=== PATIENT | male | born 1955 | race Caucasian/White ===

== ENCOUNTER 2021-12-10 12:51 | Outpatient (REF) | payer MEDICARE, OTHER, SELFPAY ==
--- NOTE | ~2021-12-10 | XR_ITS ---
EXAMINATION: XR HIP, RIGHT XR HIP, LEFT CLINICAL INFORMATION: Bilateral hip pain COMPARISON: None TECHNIQUE: Each hip is imaged in AP and frog-lateral projections. There are total of 4 views. FINDINGS: There is no fracture or dislocation. Bony mineralization appears normal. Neither hip shows focal joint narrowing or erosive change or visible chondrocalcinosis. There is some fine short linear mineralization adjacent to mid aspect of each greater trochanter which may related to tendon insertion. Soft tissue planes appear symmetric. The visualized SI joints and pubis are unremarkable. XR/XR hip LT w PEL1V IMPRESSION: 1. No focal joint narrowing or erosive change. 2. Fine short mineralization adjacent to mid greater trochanters which may be related to tendon insertion.
--- NOTE | ~2021-12-10 | XR_ITS ---
EXAMINATION: XR HIP, RIGHT XR HIP, LEFT CLINICAL INFORMATION: Bilateral hip pain COMPARISON: None TECHNIQUE: Each hip is imaged in AP and frog-lateral projections. There are total of 4 views. FINDINGS: There is no fracture or dislocation. Bony mineralization appears normal. Neither hip shows focal joint narrowing or erosive change or visible chondrocalcinosis. There is some fine short linear mineralization adjacent to mid aspect of each greater trochanter which may related to tendon insertion. Soft tissue planes appear symmetric. The visualized SI joints and pubis are unremarkable. XR/XR hip RT min 2V IMPRESSION: 1. No focal joint narrowing or erosive change. 2. Fine short mineralization adjacent to mid greater trochanters which may be related to tendon insertion.
== END 2021-12-10 12:52 | disposition home or self-care (01) ==
LOC: HO.HOSX 12:51
PROVIDERS: PCP Internal Medicine; Visit Provider Physician Assistant
DX: M16.0 Bilateral primary osteoarthritis of hip (principal); M54.16 Radiculopathy, lumbar region
CPT/HCPCS: 73502; 99202

== ENCOUNTER 2021-12-23 12:46 | Outpatient (REF) | payer MEDICARE, OTHER, SELFPAY ==
--- NOTE | ~2021-12-23 | FL_ITS ---
EXAMINATION: BILATERAL HIP STEROID INJECTION UNDER FLUOROSCOPY CLINICAL INFORMATION: Bilateral hip pain. Primary osteoarthritis. COMPARISON: None TECHNIQUE: 3 images. DLP: 41.604 PROCEDURE: Following explaining bilateral hip steroid injection under fluoroscopy the procedure, benefits and risks, a written consent was obtained. Skin overlying the left hip was cleaned and draped in usual sterile manner. 1% lidocaine was injected puncture site. A 22-gauge spinal needle was inserted from a left-sided approach to the left femoral neck lateral cortex and 2 mL of nonionic contrast was injected. After confirming contrast in the joint space 4 mL 1% lidocaine, 4 mL 0.25% Marcaine and 1 mL steroid was injected and needle withdrawn. Complete hemostasis was achieved at the puncture site and sterile Band-Aid applied postprocedure. Subsequently, the skin overlying the right hip was cleaned and draped in usual sterile manner. 1% lidocaine was injected puncture site. A 20-gauge spinal needle was then injected from the skin into the lateral cortex of the right femoral neck and 2 mL of nonionic contrast was injected. A single image was obtained for documentation. Subsequently, 4 mL of 1% lidocaine, 4 mL of 0.25% Sensorcaine and 1 mL of steroid was injected and needle withdrawn. Complete hemostasis was achieved at the puncture site. Sterile Band-Aid applied postprocedure. Patient tolerated the procedure extremely well. FL/FL arthrogram hip RT IMPRESSION: Successful fluoroscopy-guided bilateral hip steroid injection performed without evident complications. Fluoroscopy time: 0.6 minutes.
--- NOTE | ~2021-12-23 | FL_ITS ---
EXAMINATION: BILATERAL HIP STEROID INJECTION UNDER FLUOROSCOPY CLINICAL INFORMATION: Bilateral hip pain. Primary osteoarthritis. COMPARISON: None TECHNIQUE: 3 images. DLP: 41.604 PROCEDURE: Following explaining bilateral hip steroid injection under fluoroscopy the procedure, benefits and risks, a written consent was obtained. Skin overlying the left hip was cleaned and draped in usual sterile manner. 1% lidocaine was injected puncture site. A 22-gauge spinal needle was inserted from a left-sided approach to the left femoral neck lateral cortex and 2 mL of nonionic contrast was injected. After confirming contrast in the joint space 4 mL 1% lidocaine, 4 mL 0.25% Marcaine and 1 mL steroid was injected and needle withdrawn. Complete hemostasis was achieved at the puncture site and sterile Band-Aid applied postprocedure. Subsequently, the skin overlying the right hip was cleaned and draped in usual sterile manner. 1% lidocaine was injected puncture site. A 20-gauge spinal needle was then injected from the skin into the lateral cortex of the right femoral neck and 2 mL of nonionic contrast was injected. A single image was obtained for documentation. Subsequently, 4 mL of 1% lidocaine, 4 mL of 0.25% Sensorcaine and 1 mL of steroid was injected and needle withdrawn. Complete hemostasis was achieved at the puncture site. Sterile Band-Aid applied postprocedure. Patient tolerated the procedure extremely well. FL/FL arthrogram hip LT IMPRESSION: Successful fluoroscopy-guided bilateral hip steroid injection performed without evident complications. Fluoroscopy time: 0.6 minutes.
== END 2021-12-23 12:47 | disposition home or self-care (01) ==
LOC: HO.XRAY 12:46
PROVIDERS: PCP Internal Medicine; Visit Provider Physician Assistant
DX: M16.0 Bilateral primary osteoarthritis of hip (principal)
CPT/HCPCS: 27093; 73525

== ENCOUNTER → 2021-12-30 10:58 | Outpatient (BNVA) | payer MEDICARE, OTHER, SELFPAY | PROVIDERS: PCP Internal Medicine; Visit Provider Physician Assistant | DX: M16.0 Bilateral primary osteoarthritis of hip (principal) | CPT/HCPCS: 99212 ==

== ENCOUNTER → 2022-03-22 14:44 | Outpatient (BNVA) | payer MEDICARE, OTHER, SELFPAY | PROVIDERS: PCP Internal Medicine; Visit Provider Nurse Practitioner Family | DX: M47.816 Spondylosis without myelopathy or radiculopathy, lumbar region (principal) | CPT/HCPCS: 99202 ==

== ENCOUNTER → 2022-07-21 13:06 | Outpatient (BNVA) | payer MEDICARE, OTHER, SELFPAY | PROVIDERS: PCP Internal Medicine; Visit Provider Orthopaedic Surgery | DX: M16.0 Bilateral primary osteoarthritis of hip (principal); M25.552 Pain in left hip; M54.16 Radiculopathy, lumbar region | CPT/HCPCS: 99212 ==

== ENCOUNTER 2022-08-10 12:30 | Outpatient (REF) | payer MEDICARE, OTHER, SELFPAY ==
--- NOTE | ~2022-08-10 | MR_ITS ---
EXAMINATION: MR HIP WITHOUT CONTRAST, LEFT CLINICAL INFORMATION: Left hip and lower back pain. COMPARISON: Left hip and pelvic radiographs dated 12/10/2021. TECHNIQUE: MRI of the left hip was obtained using routine sequences on a high-field magnet. FINDINGS: ACETABULAR LABRUM: Diffuse irregularity and abnormal signal throughout the entirety of the labrum consistent with complex degenerative tearing. Paralabral cyst posterosuperiorly measuring up to 1.4 cm. ARTICULAR CARTILAGE/BONE: Articular cartilage signal heterogeneity and surface irregularity with areas of near full-thickness loss. Small marginal osteophytes. No stress reaction, fracture, or avascular necrosis. No concerning lytic or blastic osseous lesion. No abnormal soft tissue mass or fluid collection. The acetabular depth is within normal limits. MUSCLES/TENDONS: Intact. JOINT FLUID/BURSA: Within normal limits. INTRAPELVIC STRUCTURES: Unremarkable. MR/MR hip LT wo con IMPRESSION: 1. Moderate left hip osteoarthritis. No stress reaction, fracture, or avascular necrosis. 2. Diffuse degenerative tearing of the labrum with a posterosuperior paralabral cyst measuring up to 1.4 cm.
--- NOTE | ~2022-08-10 | XR_ITS ---
EXAMINATION: X-RAY PRE-MRI SCREENING CLINICAL INFORMATION: Pre-MRI screening. COMPARISON: None TECHNIQUE: 3 views of the orbits were obtained. FINDINGS: No radiopaque foreign body is seen. Dental caps and implants are noted without abnormality. The bony orbits are intact. The paranasal sinuses are clear. The nasal bones are intact. Incidental mildly prominent posterior occipital protuberance. The soft tissues are unremarkable. XR/XR pre mri screening IMPRESSION: No radiopaque foreign body.
== END 2022-08-10 12:31 | disposition home or self-care (01) ==
LOC: HO.MRI 12:30
PROVIDERS: Visit Provider Orthopaedic Surgery
DX: M16.0 Bilateral primary osteoarthritis of hip (principal)
CPT/HCPCS: 73721

== ENCOUNTER → 2022-08-25 14:39 | Outpatient (BNVA) | payer MEDICARE, OTHER, SELFPAY | PROVIDERS: PCP Internal Medicine; Visit Provider Orthopaedic Surgery | DX: M25.552 Pain in left hip (principal); E11.9 Type 2 diabetes mellitus without complications | CPT/HCPCS: 99212 ==

== ENCOUNTER 2022-10-11 12:00 | Outpatient (RCR) | payer MEDICARE, OTHER, SELFPAY ==
--- NOTE | 2022-08-30 17:41 | MHC.PT.EP ---
[facility] [place] [facility] [place] [facility] [place] [facility] [address] [place]ol[place] [address] [phone] F: [phone] F: [phone] F: [phone] F: [phone] Physical Therapy Plan of Care Date of Evaluation: Date of Surgery: N/A Diagnosis: radiulopathy, lumbar region bilateral primary osteoarthritis of hip Assessment: Pt is a pleasant and motivated 67yo M who presents to PT with L low back and hip pain. He presents to PT with current impairments in pain, decreased lumbar ROM, decreased hip ROM, decreased hamstring length, soft tissue restrictions, decreased hip/glute strength, decreased balance and impaired gait. He is limited functionally by walking, transitional movements, stair navigation, bending, prolonged sitting, hiking, and golfing. He is a good candidate for skilled PT in order to address current impairments to facilitate return to PLOF. He will be seen 2x/week for 4 weeks and will be reassessed at that time. Frequency and Duration: The patient will be seen 2x/week for 4 weeks Short Term Goals: Pt will be I with HEP to promote self management of symptoms Pt will improve L glute med strength to at least 4-/5 Performance Improvement Consultant Goals: Pt will tolerate standing and walking > 30 min on even and uneven surfaces with minimal to no pain Pt will demonstrate improvements in function as evidenced by statistically significant improvement in Modified Oswestry Low Back Pain and Disability Questionnaire Treatment Plan: Modalities to reduce pain, spasms and effusion. Manual therapy to restore motion and function. Therapeutic exercise to improve strength and flexibility. Neuromuscular re-education for posture and balance. Therapeutic activities to return to functional activities of daily living. Electronically signed by: Smitha Davis, PT, DPT Please sign and return to therapist. Thank you for your referral.
--- NOTE | 2022-10-11 14:48 | MHC.PT.DC ---
[facility] [place] [facility] [place] Office [place] [facility] [address] [place] Jolley [address] [phone] F: [phone] F: [phone] F: [phone] F: [phone] Physical Therapy Discharge Report Diagnosis: radiulopathy, lumbar region bilateral primary osteoarthritis of hip Date of Surgery: N/A Date of Evaluation: 08/30/22 Date of Discharge: 10/11/22 Treatments to Date: 9 Cancellations to Date: No Shows to Date: Discharge Status: Achieved Goals Improved Function Independent with HEP Discharge Summary: Pt has made good progress since SOC. He has been motivated with PT and is compliant with HEP. He has met his STGs and LTGs. He has improved his score on Modified Oswestry Low Back Pain Disability Questionnaire from 20/50 on initial PT evaluation to 12/50 at D/C. He still occasionally has pain in low back>L hip however he is able to manage it with stretches included in his HEP. He is I with HEP. Pt is being D/C from skilled PT at this time. Pt reports no further questions or concerns for PT at this time. Electronically signed by: Smitha Davis, PT, DPT Please sign and return to therapist. Thank you for your referral.
== END 2022-10-11 14:46 | disposition home or self-care (01) ==
LOC: HO.PT 12:00
PROVIDERS: Visit Provider Orthopaedic Surgery
DX: M54.16 Radiculopathy, lumbar region (principal); M16.0 Bilateral primary osteoarthritis of hip
CPT/HCPCS: 97110; 97140; 97162; 97530

== ENCOUNTER 2022-11-28 08:50 | Outpatient (REF) | payer MEDICARE, OTHER, SELFPAY ==
--- NOTE | ~2022-11-28 | XR_ITS ---
EXAMINATION: XR PELVIS CLINICAL INFORMATION: Right hip pain. COMPARISON: 12/10/2021 right hip radiographs. TECHNIQUE: AP view of the pelvis. FINDINGS: Minimal bilateral hip degenerative joint changes are seen. There is no acute fracture or dislocation. The soft tissues are unremarkable. XR/XR pelvis 1-2V IMPRESSION: Minimal osteoarthritis without overt acute abnormality.
== END 2022-11-28 08:51 | disposition home or self-care (01) ==
LOC: HO.HOSX 08:50
PROVIDERS: Visit Provider Orthopaedic Surgery
DX: M17.0 Bilateral primary osteoarthritis of knee (principal); M54.30 Sciatica, unspecified side
CPT/HCPCS: 72170; 99212

== ENCOUNTER → 2023-01-04 13:12 | Outpatient (BNVA) | payer MEDICARE, OTHER, SELFPAY | PROVIDERS: PCP Internal Medicine; Visit Provider Anesthesiology | DX: M47.816 Spondylosis without myelopathy or radiculopathy, lumbar region (principal); M16.0 Bilateral primary osteoarthritis of hip; M25.552 Pain in left hip | CPT/HCPCS: 99212 ==

== ENCOUNTER 2023-01-19 13:38 | Outpatient (REF) | payer MEDICARE, OTHER, SELFPAY ==
--- NOTE | ~2023-01-19 | MR_ITS ---
EXAMINATION: MR LUMBAR SPINE WITHOUT CONTRAST CLINICAL INFORMATION: Lower back pain, left-sided sciatica COMPARISON: None TECHNIQUE: MRI of the lumbar spine was obtained using routine sequences without contrast. FINDINGS: Normal anatomic alignment. No suspicious marrow signal or focal osseous lesion. The vertebral body heights are maintained. Disc desiccation and mild height loss at L5-S1. There is mild loss of disc signal at L4-L5.. The conus medullaris terminates at the level of L2. The distal spinal cord is normal in appearance. The cauda equina nerve roots appear normal. No significant abnormalities of the paraspinal musculature.. Limited evaluation of the intra-abdominal structures without significant abnormalities. The abdominal aorta is of normal contour and caliber. SPINAL LEVELS: T12-L1: No significant spinal canal or neural foraminal narrowing L1-L2: No significant spinal canal or neuroforaminal narrowing. L2-L3: No significant spinal canal or neuroforaminal narrowing. L3-L4: No significant spinal canal or neuroforaminal narrowing. L4-L5: No significant spinal canal or neuroforaminal narrowing. Mild facet arthropathy L5-S1: No significant spinal canal or neuroforaminal narrowing. Mild facet arthropathy. Shallow disc bulge. MR/MR lumbar spine wo con IMPRESSION: Mild degenerative changes of the lower lumbar spine. No significant spinal canal stenosis, neural foraminal narrowing, or evidence of nerve impingement.
== END 2023-01-19 13:39 | disposition home or self-care (01) ==
LOC: HO.MRI 13:38
PROVIDERS: PCP Internal Medicine; Visit Provider Anesthesiology
DX: M47.816 Spondylosis without myelopathy or radiculopathy, lumbar region (principal); M54.16 Radiculopathy, lumbar region
CPT/HCPCS: 72148

== ENCOUNTER 2023-01-24 06:40 | Outpatient (REF) | payer MEDICARE, OTHER, SELFPAY ==
--- NOTE | ~2023-01-24 | FL_ITS ---
EXAMINATION: XR FLUOROSCOPY WITH IMAGES CLINICAL INFORMATION: Left hip injection. Pain. COMPARISON: None. TECHNIQUE: Fluoroscopy Supervised By: Dr. Alfredo Andrew. Fluoroscopy Time: 0.2 minutes. Cumulative Dose: 5.25 mGy. DAP: 1.43 Gycm2. Images: 1. FINDINGS: There is a single image of left hip revealing needle positioned within the left hip joint space with no contrast seen. There is minimal loss of left hip joint space. FL/FL guidance in treatment room IMPRESSION: Fluoroscopy was provided to referring physician for left hip injection.
== END 2023-01-24 06:41 | disposition home or self-care (01) ==
LOC: CF 06:40
PROVIDERS: Visit Provider Anesthesiology
DX: M47.816 Spondylosis without myelopathy or radiculopathy, lumbar region (principal); M16.0 Bilateral primary osteoarthritis of hip
CPT/HCPCS: 20610; J2795; J3301

== ENCOUNTER → 2023-02-15 09:03 | Outpatient (BNVA) | payer MEDICARE, OTHER, SELFPAY | PROVIDERS: PCP Internal Medicine; Visit Provider Anesthesiology | DX: M47.816 Spondylosis without myelopathy or radiculopathy, lumbar region (principal); M25.552 Pain in left hip; M16.0 Bilateral primary osteoarthritis of hip | CPT/HCPCS: 99212 ==